=== PATIENT | female | born 1970 | race Caucasian/White ===

== ENCOUNTER 2023-08-07 12:24 | Emergency (ER) | payer OTHER, SELFPAY ==
[2023-08-07 12:26] VITALS: BP 120/88
[2023-08-07] MEDS: ADACEL 0.5 ML IM (14:45)
[2023-08-07] MEDS: VIBRAMYCIN 100 MG PO (14:46)
--- NOTE | 2023-08-07 21:05 | ED.GENMED ---
History of Present Illness
General
Chief Complaint: Skin Problem
Source: patient
Exam Limitations: none
Time Seen by Provider: 08/07/23 12:39
Nursing documentation reviewed up to this point in time: agreed with
Travel History
Have you had any contact with someone who has COVID-19?: No
Do you have any symptoms of coronavirus? Fever > 100 degrees, chills, cough, shortness of breath, sore throat, loss of taste or smell, muscle aches, or headache?: No
History of Present Illness
History of Present Illness:
52-year-old female with no significant chronic medical issues presents for evaluation of pain and swelling of the left thumb. She reports onset of symptoms about 5 days ago and they have been constant and she feels worsening. She was seen in
urgent care a few days ago was started on Augmentin and has taken 5 total doses without improvement. Was referred to the emergency room for assessment. She denies any trauma to the nail or finger. She denies any fevers or chills. She denies any
other complaints.
Past History
Past History
ED Past Medical History: None
ED Past Surgical History: Appendectomy
Social History
Living: with family
Employment: Employed
Review of Systems
Review of Systems
All Other Systems: ROS reviewed and negative except as documented in HPI and ROS
Skin: Reports other (Pain swelling and redness of the left thumb)
Phy Exam
Physical Exam
Physical Exam:
General: Well appearing and non-toxic
HEENT: protecting airway
Neck: appears supple
CV: No evidence of cyanosis
Resp: No accessory muscle use
Abd: Non-distended
Extremities: Patient has a paronychia of the left thumb and some erythema streaking along the dorsum of the thumb suggesting surrounding cellulitis; no sign of felon; finger pictured below (picture taken after drainage)
Neuro: Alert
Psych: Normal affect
Scores
Heart Failure Risk
Heart Failure Risk Score: Not Applicable
Heart Score for Chest Pain Patients
STEMI patient?: Not applicable
Withdrawal Assessment of Alcohol
Withdrawal Assessment Completed?: Not applicable
Course
Orders/Labs/Results
Orders:
Orders
08/07/23 14:21
Wound Culture [Wound/Abscess/Other Culture] Urgent
JASON Source: Finger
Specimen Description: Left
Date Specimen was Collected: 08/07/23
Time Specimen was Collected: 14:20
08/07/23 14:32
Doxycycline [Vibramycin] 100 mg PO NOW STA
08/07/23 14:37
Tetanus/Diphth/Acelpertussis [Adacel] 0.5 ml IM .ONCE ONE
Vital Signs
Initial and Last Documented VS:
Initial Vital Signs
Temp Pulse Resp BP Pulse Ox
36.7 C 92 16 120/88 98
08/07/23 12:26 08/07/23 12:26 08/07/23 12:26 08/07/23 12:26 08/07/23 12:26
Last Documented Vital Signs
Temp Pulse Resp BP Pulse Ox
36.7 C 92 16 120/88 98
08/07/23 12:26 08/07/23 12:26 08/07/23 12:26 08/07/23 12:26 08/07/23 12:26
MDM/Problems Addressed
Differential Diagnosis Includes:
Paronychia, cellulitis
MDM/Problems Addressed:
52-year-old female presents with worsening paronychia of the left thumb with some streaking redness up the thumb. She has been on Augmentin for 2 and half days. Vitals normal, exam as above. She had paronychia which was drained at the bedside
with expression of pus; this was sent for culture. Discussed with infectious disease will add doxycycline to broaden coverage. No clear indication for admission at this point. Advised frequent warm soaks and close monitoring of the area on oral
antibiotics�advised that if symptoms are worsening or if they are not improving after the next 48 hours she should return for reassessment. All questions answered.
*Pulse Oximetry
Patient hypoxic: no
*Critical Care Note
Total Time (30-74mins, 75-104mins- exclusive of procedures): Not Applicable
Data Reviewed
Source: patient
Patient Management
Discussion with other providers: Face Man (Discussed with infectious disease)
ED Attending Note
-
Portions of this chart may have been created with voice recognition software.� Occasional wrong word or��sound alike� substitutions may have occurred due to the inherent limitations of voice recognition software.
Discharge Plan
Departure
Patient Disposition: Home (Routine Discharge)
Date of Disposition: 08/07/23
Time of Disposition: 14:35
Patient with high blood pressure during this ER visit?: No
Discharge Problem:
Paronychia
Instructions: Paronychia ED
Prescriptions:
New
amoxicillin-pot clavulanate 875-125 mg tablet
1 tab PO BID 7 Days Qty: 14 0RF
doxycycline hyclate 100 mg tablet
100 mg PO BID 7 Days Qty: 14 0RF
No Action
oxycodone-acetaminophen [Percocet] 1 EACH tablet
1 ea PO Q6HPRN PRN (Reason: pain) Qty: 10 0RF
Referrals:
Silverio Galvin MD [Active] - Call in 1-3 days for appt
Miranda Talamantes DO [Family Provider] -
Activity Restrictions/Additional Instructions:
You were seen in the emergency room for finger infection. The infection was drained here in the emergency room. You should be using frequent warm soaks mixed with hydrogen peroxide over the next week. You should continue to take your Augmentin
and we added an additional antibiotic (doxycycline) which you should take as prescribed. If you notice that your symptoms are worsening over the next 24 to 48 hours or if they are not improving in the next 48 hours you should return immediately to
the emergency room as you may need to be admitted to the hospital for IV antibiotics.
Thank you for visiting the Emergency Department at [facility]
1. Please schedule a follow up appointment as directed. Call first thing tomorrow morning to make an appointment.
2. If indicated, please take your medications as instructed and indicated on discharge paperwork.
3. If any of your symptoms do not improve, or persist, or become more severe within 6-12 hours, please return to the emergency department for further care.
4. Please return to the emergency department if you develop a headache, neck pain/stiffness, fever greater than 100.4F, chest pain, shortness of breath, persistent nausea, vomiting, slurred speech, difficulty walking, numbness/tingling, weakness,
signs of infection or any other symptoms that are worrisome to you.
Please call [phone] if you have any questions.
Interventions
Interventions:
*ED COVID-19 Vaccine History Last Done: 08/07/23 12:26
*Nursing Disposition Last Done: 08/07/23 14:53
ED-Skin Assessment Last Done: 08/07/23 14:53
Discharge Date and Time
Discharge Date/Time: 08/07/23 14:54
== END 2023-08-07 14:54 | disposition home or self-care (01) ==
LOC: EMR 12:24
PROVIDERS: EMERGENCY PHYSICIAN Emergency Medicine; FAMILY PHYSICIAN Family Medicine
DX: L03.012 Cellulitis of left finger (principal); Z23 Encounter for immunization
CPT/HCPCS: 99283; 10060; 90471; 87070; 87147; 87186; 87205; 90715

== ENCOUNTER → 2024-09-13 09:23 | Outpatient (REF) | payer OTHER, SELFPAY | LOC: HWRAD 09:23 | PROVIDERS: ATTENDING PHYSICIAN Physician Assistant; FAMILY PHYSICIAN Family Medicine | DX: R79.89 Other specified abnormal findings of blood chemistry (principal); E07.89 Other specified disorders of thyroid; R10.9 Unspecified abdominal pain | CPT/HCPCS: 76536; 76700 ==